=== PATIENT | male | born 1995 | race American Indian/Alaskan Native ===

== ENCOUNTER 2021-11-01 18:02 | Emergency (ER) | payer SELFPAY ==
[2021-11-01 23:51] VITALS: BP 137/87
[2021-11-01] MEDS ORDERED: ONDANSETRON 4 MG/2 ML INJ IV ONE (23:57)
[2021-11-01] MEDS ORDERED: SODIUM CHLORIDE 0.9% 1000 ML 1,000 ML IV ONE (23:57)
[2021-11-02 00:28] LABS: Basophils % (Auto) 0.2 % (0.0-1.8); Eosinophils % (Auto) 0.7 % (0.0-4.3); Hematocrit 46.4 % (35.5-45.6); Hemoglobin 16.2 gm/dl (11.8-15.2); Lymphocytes # (Auto) 1.9 K/mm3 (1.2-5.4); Mean Corpuscular HGB Conc 35 % (32-34); Mean Corpuscular Volume 82 fl (84-94); Monocytes # (Auto) 0.7 K/mm3 (0.0-0.8); Monocytes % (Auto) 10.9 % (0.0-7.3); Platelet Count 177 K/mm3 (140-440); Red Blood Count 5.64 M/mm3 (3.65-5.03); Red Cell Distribution Width 14.3 % (13.2-15.2)
[2021-11-02 00:38] LABS: Alanine Aminotransferase 15 units/L (7-56); Albumin 4.2 g/dL (3.9-5); BUN/Creatinine Ratio 14; Blood Urea Nitrogen 14 mg/dL (9-20); Calcium 9.5 mg/dL (8.4-10.2); Hemolysis Index 157
--- NOTE | 2021-11-02 01:16 | Emergency Department Report ---
ED Abdominal Pain HPI - General Chief Complaint: Abdominal Pain Stated Complaint: AND PAIN/DIARRHEA Time Seen by Provider: 11/01/21 23:56 Source: patient Mode of arrival: Ambulatory Limitations: No Limitations - History of Present Illness Initial Comments: Is a 25-year-old male who presents for diarrhea x2 days. Patient states mild abdominal cramping rated at 4/10. Symptoms are exacerbated by p.o. intake. Last p.o. intake was this evening without nausea vomiting or diarrhea. There is been no fever no chills. Patient states suspicious food intake 2 days ago as chicken. Symptoms started soon after ingesting the chicken. Patient drove self to ED tonight patient appears well-nourished well-hydrated and nontoxic. Patient patient is with no acute distress at this time. MD Complaint: abdominal pain - Related Data Previous Rx's Medication Instructions Recorded Last Taken Type Loperamide [Imodium] 2 mg PO Q2HR PRN #12 capsule 11/02/21 Unknown Rx Allergies Allergy/AdvReac Type Severity Reaction Status Date / Time No Known Allergies Allergy Verified 11/01/21 18:46 ED Review of Systems ROS: Stated complaint: AND PAIN/DIARRHEA Other details as noted in HPI Constitutional: denies: chills, fever Eyes: denies: eye pain, eye discharge, vision change ENT: denies: ear pain, throat pain Respiratory: denies: cough, shortness of breath, wheezing Cardiovascular: denies: chest pain, palpitations Endocrine: no symptoms reported Gastrointestinal: abdominal pain, nausea, diarrhea. denies: vomiting, constipation, hematemesis, melena, hematochezia Genitourinary: as per HPI. denies: urgency, dysuria, frequency, hematuria, discharge Musculoskeletal: denies: back pain, joint swelling, arthralgia Skin: denies: rash, lesions Neurological: denies: headache, weakness, paresthesias, vertigo Psychiatric: denies: anxiety, depression Hematological/Lymphatic: denies: easy bleeding, easy bruising ED Past Medical Hx - Past Medical History Previous Medical History?: No - Medications Home Medications: Home Medications Medication Instructions Recorded Confirmed Last Taken Type Loperamide [Imodium] 2 mg PO Q2HR PRN #12 capsule 11/02/21 Unknown Rx ED Physical Exam - General Limitations: No Limitations General appearance: alert, in no apparent distress - Head Head exam: Present: normocephalic, normal inspection - Eye Eye exam: Present: EOMI Pupils: Present: normal accommodation - ENT ENT exam: Present: mucous membranes moist - Neck Neck exam: Present: normal inspection, full ROM - Respiratory Respiratory exam: Present: normal lung sounds bilaterally. Absent: respiratory distress - Cardiovascular Cardiovascular Exam: Present: regular rate, normal rhythm, normal heart sounds. Absent: systolic murmur, diastolic murmur, rubs, gallop - GI/Abdominal GI/Abdominal exam: Present: soft, normal bowel sounds. Absent: distended, tenderness, guarding, rebound, rigid, bruit, hernia - Rectal Rectal exam: Present: deferred - Extremities Exam Extremities exam: Present: normal inspection, full ROM - Back Exam Back exam: Present: normal inspection, full ROM. Absent: CVA tenderness (R), CVA tenderness (L) - Neurological Exam Neurological exam: Present: alert, oriented X3, CN II-XII intact - Expanded Neurological Exam Expanded Patient oriented to: Present: person, place, time Speech: Present: fluid speech Best Eye Response (Po): (4) open spontaneously Best Motor Response (Po): (6) obeys commands Best Verbal Response (Po): (5) oriented Po Total: 15 - Psychiatric Psychiatric exam: Present: normal affect, normal mood - Skin Skin exam: Present: warm ED Course Vital Signs 11/01/21 11/01/21 18:40 23:51 Temperature 98.1 F 98 F Pulse Rate 101 H 77 Respiratory 16 16 Rate Blood Pressure 141/89 Blood Pressure 137/87 [Right] O2 Sat by Pulse 97 98 Oximetry ED Medical Decision Making - Lab Data Result diagrams: 11/02/21 00:00 11/02/21 00:00 Labs 11/02/21 11/02/21 00:00 00:00 WBC 6.8 RBC 5.64 H Hgb 16.2 H Hct 46.4 H MCV 82 L MCH 29 MCHC 35 H RDW 14.3 Plt Count 177 Lymph % (Auto) 28.0 [place] % (Auto) 10.9 H Eos % (Auto) 0.7 Baso % (Auto) 0.2 Lymph # (Auto) 1.9 [place] # (Auto) 0.7 Eos # (Auto) 0.0 Baso # (Auto) 0.0 Seg Neutrophils % 60.2 Seg Neutrophils # 4.1 Sodium 137 Potassium 5.0 Chloride 99.9 Carbon Dioxide 28 Anion Gap 14 BUN 14 Creatinine 1.0 Estimated GFR > 60 BUN/Creatinine Ratio 14 Glucose 90 Calcium 9.5 Total Bilirubin 0.70 AST 24 ALT 15 Alkaline Phosphatase 77 Total Protein 7.6 Albumin 4.2 Albumin/Globulin Ratio 1.2 - Medical Decision Making Labs noted as above, KUB: Patient currently tolerating p.o. intake without nausea vomiting or increased diarrhea. Diagnosis is abdominal pain, diarrhea, plan DC to home with prescriptions, continue to hydrate, follow-up primary care doctor in 2 to 3 days. Return to emergency department should symptoms worsen. Patient verbalized agreement and understanding with discharge plan. Patient DC'd home in stable condition at this time. Critical care attestation.: If time is entered above; I have spent that time in minutes in the direct care of this critically ill patient, excluding procedure time. ED Disposition Clinical Impression: Abdominal pain Qualifiers: Abdominal location: generalized Qualified Code(s): R10.84 - Generalized abdominal pain Diarrhea Qualifiers: Diarrhea type: unspecified type Qualified Code(s): R19.7 - Diarrhea, unspecified Disposition: 01 HOME / SELF CARE / HOMELESS Is pt being admited?: No Does the pt Need Aspirin: No Condition: Stable Instructions: Diarrhea, Adult, Food Choices to Help Relieve Diarrhea, Adult Additional Instructions: Take medications as prescribed, hydrate as directed. Follow-up with your primary care doctor in 2 to 3 days. Return to emergency department should symptoms worsen. Prescriptions: Loperamide [Imodium] 2 mg PO Q2HR PRN #12 capsule PRN Reason: diarrhea Referrals: NATALIE GARRETT MD [Staff Physician] - 3-5 Days Forms: Work/School Release Form(ED) Time of Disposition: 01:54
--- NOTE | 2021-11-02 01:37 | XRay Report ---
ABDOMEN 1 VIEW INDICATION / CLINICAL INFORMATION: abd pain. COMPARISON: None available. FINDINGS: TUBES / LINES: None. BOWEL GAS PATTERN: No significant abnormality. FREE AIR / EXTRALUMINAL GAS: None seen. ADDITIONAL FINDINGS: No significant additional findings. IMPRESSION: 1. No significant abnormality. Signer Name: Yann Arredondo DO Signed: 11/02/2021 1:32 AM Workstation Name: [id number]
== END 2021-11-02 02:30 | disposition home or self-care (01) ==
LOC: ED 18:02
DX: R10.84 Generalized abdominal pain (principal); R19.7 Diarrhea, unspecified; Z79.899 Other long term (current) drug therapy
CPT/HCPCS: 36415; 74018; 80053; 85025; 96361; 96374; 99284; J2405; J7030